=== PATIENT | female | born 1975 | race Caucasian/White ===

== ENCOUNTER → 2016-08-11 | Outpatient (CLI) | payer SELFPAY ==
[~2016-08-11] MED LIST: ATOR20TA59 PO; BENZ0.5T3 PO; FLUT16SP EA NOSTRIL; GABA-338 PO; HYDR12.54 PO; HYDR50TA48 PO; INSU100I3 SQ; INSU300I SQ; LISI-621 PO; MIRT30TA6 PO; PROM25TA7 PO; ZIPR80CA PO
--- NOTE | 2016-08-11 11:57 | DI ---
Indication: ITS.REASON: R10.2 PELVIC PAIN PROCEDURE: US PELVIC NON OB W/TRANS VAG: Encounter: Initial Comparison: None FINDINGS: Transvaginal and transabdominal pelvic imaging was performed. The uterus measures 9 x 3.4 x 4.8 cm. The parenchyma is homogeneous without fibroids. The endometrial stripe measures 5 mm in thickness. There is no evidence of focal endometrial mass. Both ovaries are identified. The right ovary appears normal containing a small 1.2 cm cyst or follicle. Right ovary measures 3 x 1.8 x 3.3 cm. Left ovary adnexa shows a mixed echogenicity mass which has multiple thick septations and internal debris present. There are large cystic spaces within the mass. This measures 8.8 x 7.4 x 6.5 cm in size with some internal Doppler flow within the thickened septations. No significant free pelvic fluid. Normal left ovarian tissue is not seen. Impression: Heterogeneous left adnexal mass, likely related to the left ovary. This is highly suspicious for ovarian neoplasm which could be malignant or benign. Recommend gynecologic surgical consultation for removal. .
== END ==
LOC: IMA 10:40
PROVIDERS: ATTEND Nurse Practitioner Family
DX: D39.12 Neoplasm of uncertain behavior of left ovary (principal); R10.2 Pelvic and perineal pain